=== PATIENT | female | born 2000 | race Caucasian/White ===

== ENCOUNTER 2020-11-08 21:13 | Emergency (ER) | payer BC ==
[2020-11-08] MEDS ORDERED: Ketorolac 30 MG/ML SDV IM ONE (21:32)
[2020-11-08] MEDS ORDERED: Orphenadrine 100 MG Tab.ER PO ONE (21:32)
--- NOTE | 2020-11-08 21:46 | EDM.PDOC ---
ED HPI GENERAL MEDICAL PROBLEM - General Chief Complaint: Back Pain or Injury Stated Complaint: LOWER BACK PAIN Time Seen by Provider: 11/08/20 21:32 Source of Information: Reports: Patient, RN Notes Reviewed History Limitations: Reports: No Limitations - History of Present Illness INITIAL COMMENTS - FREE TEXT/NARRATIVE: Patient is a 20-year-old female who presents to the ER for evaluation of her lower back pain. Notes that she was stepping up onto her couch a few days ago, she felt a twinge in her back. She states that when she woke up the next day, she had pretty severe back pain, she has been using Tylenol and ibuprofen in alternating fashion but nothing seems to be doing much for relief. States that the pain does seem to shoot down to her knee, if she raises her leg, also radiates into her groin area, and then upper back if she twists or moves much at all. She is not having any dysuria, frequency or urgency, no fever/chills, cough/shortness of breath, nausea/vomiting/diarrhea. Patient notes that she does have back issues, since she has been a teenager due to sports injuries. Lower Back Pain Score (Numeric/FACES): 8 - Related Data Allergies Allergy/AdvReac Type Severity Reaction Status Date / Time No Known Allergies Allergy Verified 11/08/20 21:30 Home Meds: Home Meds Albuterol [Ventolin HFA] 2 puff INH Q6H 01/14/18 [History] Montelukast Sodium [Singulair] 10 mg PO DAILY 01/14/18 [History] OXcarbazepine [Oxcarbazepine] 600 mg PO BID 01/14/18 [History] Ketorolac [Toradol] 10 mg PO TID PRN #9 tab 11/08/20 [Rx] Orphenadrine [Norflex] 100 mg PO BID PRN #20 tab 11/08/20 [Rx] Past Medical History Respiratory History: Reports: Asthma Neurological History: Reports: Seizure Social & Family History - Family History Family Medical History: No Pertinent Family History - Tobacco Use Tobacco Use Status *Q: Never Tobacco User - Caffeine Use Caffeine Use: Reports: None - Recreational Drug Use Recreational Drug Use: No - Living Situation & Occupation Living situation: Reports: Single Occupation: Student ED ROS GENERAL - Review of Systems Review Of Systems: Comprehensive ROS is negative, except as noted in HPI. ED EXAM,LOWER BACK PAIN/INJURY - Physical Exam Exam: See Below Exam Limited By: No Limitations General Appearance: Alert, WD/WN, No Apparent Distress, Anxious Respiratory/Chest: No Respiratory Distress, Lungs Clear, Normal Breath Sounds, No Accessory Muscle Use, Chest Non-Tender Cardiovascular: Normal Peripheral Pulses, Regular Rate, Rhythm, No Murmur Back Exam: Normal Inspection, Muscle Spasm (about the low back at level of iliac crest) Extremities: Normal Inspection, Normal Capillary Refill Neurological: Alert, Normal Mood/Affect, Normal Dorsiflexion, CN II-XII Intact, Normal Plantar Flexion, Normal Gait, Normal Reflexes, No Motor/Sensory Deficits, Oriented x 3, Straight Leg Raise (R). No: Straight Leg Raise (L), Saddle Anesthesia Psychiatric: Normal Affect, Normal Mood Skin Exam: Warm, Dry, Intact, Normal Color, No Rash Course - Vital Signs Last Recorded V/S: Last Vital Signs Temp 98.6 F 11/08/20 21:25 Pulse 83 11/08/20 21:25 Resp 20 11/08/20 21:25 BP 150/89 H 11/08/20 21:25 Pulse Ox 98 11/08/20 21:25 - Orders/Labs/Meds Meds: Medications Discontinued Medications Generic Name Dose Route Start Last Admin Trade Name Ismael PRMarkel Reason Stop Dose Admin Hydrocodone Bitart/Acetaminophen 2 tab 11/08/20 22:20 11/08/20 22:44 Acetaminophen/Hydrocodone 325-5 Mg Tab PO 11/08/20 22:21 2 tab ONETIME ONE Administration Ketorolac Tromethamine 60 mg 11/08/20 21:32 11/08/20 21:48 Ketorolac 30 Mg/Ml Sdv IM 11/08/20 21:33 60 mg ONETIME ONE Administration Orphenadrine Citrate 100 mg 11/08/20 21:32 11/08/20 21:48 Orphenadrine 100 Mg Tab.Er PO 11/08/20 21:33 100 mg ONETIME ONE Administration - Re-Assessments/Exams Free Text/Narrative Re-Assessment/Exam: 11/08/20 21:43 Patient presents to the ER for her low back pain, this does sound like musculoskeletal strain, will go ahead and do IM Toradol and p.o. Norflex for initial management. Plan is to send her home with a few tablets of Norflex and have her take it easy over the weekend with general conservative measures and have her follow-up on Wednesday if things are not much better. 11/08/20 23:00 Patient is feeling better after the meds given, will discharge home with general recommendations. Departure - Departure Time of Disposition: 23:01 Disposition: Home, Self-Care 01 Condition: Good Clinical Impression: Back muscle spasm - Discharge Information *PRESCRIPTION DRUG MONITORING PROGRAM REVIEWED*: No *COPY OF PRESCRIPTION DRUG MONITORING REPORT IN PATIENT ROCIO: No Prescriptions: Orphenadrine [Norflex] 100 mg PO BID PRN #20 tab PRN Reason: Spasms Ketorolac [Toradol] 10 mg PO TID PRN #9 tab PRN Reason: Pain Instructions: Muscle Strain, [id number] Referrals: PCP,Not In Area [Primary Care Provider] - Forms: ED Department Discharge Additional Instructions: You were evaluated in the ER today for your low back pain. You were given an IM injection of Toradol (ketorolac), and a muscle relaxer called Norflex (orphenadrine), this seemed to work well for you. You have been given a short course of Toradol to take over the next 3 days, you can take 1 tablet 3 times a day for further pain management. Do not take any more ibuprofen while using this medication. You can take Tylenol in conjunction with this, 500 mg every 6 hours as needed for ongoing pain. You have been given a prescription for Norflex, a muscle relaxer, please take 1 tablet 2 times a day as needed for further muscle spasms. These medications have been electronically prescribed to the clinic pharmacy located in the [facility], you will need to go there tomorrow during business hours to pick these up and take as directed. 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 You may want to try a heat pack to the area, as this should help relax some of the back muscles, and should hopefully make things a little bit more tolerable. You may also try topical lidocaine patches like Biofreeze patches, Salonpas patches, etc for ongoing management. Please return to the ER at any time if symptoms change or worsen. Sepsis Event Note (ED) - Evaluation Sepsis Screening Result: No Definite Risk - Focused Exam Vital Signs: Vital Signs Temp Pulse Resp BP Pulse Ox 11/08/20 21:25 98.6 F 83 20 150/89 H 98
[2020-11-08] MEDS ORDERED: Acetaminophen/HYDROcodone 325-5 MG Tab PO ONE (22:20)
== END 2020-11-08 23:12 | disposition home or self-care (01) ==
LOC: JD.ED 21:13
DX: M62.830 Muscle spasm of back (principal); J45.909 Unspecified asthma, uncomplicated; R56.9 Unspecified convulsions; Z79.899 Other long term (current) drug therapy
CPT/HCPCS: 96372; 99283; A9270; J1885